=== PATIENT | male | born 1950 | race American Indian/Alaskan Native ===

== ENCOUNTER 2021-08-19 15:29 | Emergency (ER) | payer MEDICARE ==
[2021-08-19 16:05] VITALS: BP 171/74
[2021-08-19] MEDS ORDERED: AMOXICILLIN/K CLAV 875/125MG TAB PO ONE (20:43)
[2021-08-19] MEDS ORDERED: traMADol 50 MG TAB PO ONE (20:43)
[2021-08-19] MEDS ORDERED: ONDANSETRON 4 MG ODT TAB PO ONE (20:43)
[2021-08-19] MEDS ORDERED: RABIES IMMUNE GLOBULIN P/F 300 UNIT/ML INJ 5 ML IM ONE (20:43)
[2021-08-19] MEDS ORDERED: TETANUS,DIPH,PERTUSS(ACELL) VACCINE 0.5 ML SYRINGE IM ONE (20:43)
[2021-08-19] MEDS ORDERED: RABIES VACCINE, HUMAN DIPLOID/PF 2.5 UNIT/ML VIAL IM ONE (20:45)
--- NOTE | 2021-08-19 22:39 | Emergency Department Report ---
ED Animal Bite HPI - General Chief Complaint: Animal Bite Stated Complaint: DOG BITE Source: patient Mode of arrival: Ambulatory Limitations: No Limitations - History of Present Illness Initial Comments: Patient is a 71-year-old -English male with a history of hypertension, CVA and [id number] diabetes who presents to the ED with complaint of acute onset right hand pain and swelling with multiple puncture wounds with bleeding and purulent discharge after being bitten by a strange dog that he met at the park 3 days ago. Patient states that he was walking at the park when he met the dog that was also at the park, and when he tried to tease the dog the dog jumped on him and bit him on the right hand. Patient states that he is unsure of the dog's vaccination status. Patient also states that he is not up-to-date with his tetanus vaccination. Patient denies numbness and tingling or weakness of right hand, dizziness, fever, chills, nausea and vomiting, numbness and tingling or weakness of right hand or loss of consciousness. MD Complaint: animal bite (right hand stray dog bite), animal-related injury (dog bite of right hand ) -: days(s) (3) Location: other (right hand) Right: Hand (multiple puncture wounds from dog bite) Animal: dog Description: unknown animal, immunizations unknown Mechanism: bite, contact with mucous membr Pain Description: sharp, constant, other (swelling) Severity scale (0 -10): 8 Context: provoked Associated Symptoms: erythema, discharge from wound, bleeding. denies: fever, rash, loss of consciousness, cough, headache, diaphoresis, shortness of breath Treatments Prior to Arrival: irrigation - Related Data Patient Tetanus UTD: No Home Medications Medication Instructions Recorded Confirmed Last Taken Aspirin [Aspirin BABY CHEW TAB] 81 mg PO DAILY 02/09/20 02/09/20 Unknown Losartan [Cozaar] 100 mg PO QDAY 02/09/20 02/09/20 Unknown amLODIPine 10 mg PO DAILY 02/09/20 02/09/20 Unknown Previous Rx's Medication Instructions Recorded Last Taken Type Ascorbic Acid [Vitamin C] 1,000 mg PO BID #60 tablet 02/10/20 Unknown Rx AtorvaSTATin [Lipitor] 40 mg PO QHS #30 tablet 02/10/20 Unknown Rx Famotidine [Pepcid] 20 mg PO BID #60 tablet 02/10/20 Unknown Rx Zinc Sulfate [Zinc] 220 mg PO DAILY #30 tablet 02/10/20 Unknown Rx carvediloL [Coreg] 6.25 mg PO BID #60 tablet 02/10/20 Unknown Rx predniSONE [Deltasone] 20 mg PO QDAY #5 tab 02/10/20 Unknown Rx Amoxicillin/K Clav Tab [Augmentin 1 tab PO Q12HR #20 tab 08/19/21 Unknown Rx 875 mg] Ibuprofen [Motrin] 800 mg PO Q8HR PRN #30 tablet 08/19/21 Unknown Rx traMADoL [Ultram] 50 mg PO Q6HR PRN #12 tablet 08/19/21 Unknown Rx Allergies Allergy/AdvReac Type Severity Reaction Status Date / Time No Known Allergies Allergy Unverified 02/06/20 09:16 ED Review of Systems ROS: Stated complaint: DOG BITE Other details as noted in HPI Constitutional: denies: chills, fever Eyes: denies: eye pain, eye discharge, vision change ENT: denies: ear pain, throat pain Respiratory: denies: cough, shortness of breath, wheezing Cardiovascular: denies: chest pain, palpitations Endocrine: no symptoms reported Gastrointestinal: denies: abdominal pain, nausea, diarrhea Genitourinary: denies: urgency, dysuria Musculoskeletal: joint swelling, arthralgia (Right hand pain and swelling due to a puncture wound and swelling from a recent dog bite). denies: back pain Skin: other (Bleeding, swollen, mild erythematous right hand puncture wound from recent dog bite). denies: rash, lesions Neurological: denies: headache, weakness, paresthesias Psychiatric: denies: anxiety, depression Hematological/Lymphatic: denies: easy bleeding, easy bruising ED Past Medical Hx - Past Medical History Previous Medical History?: Yes Hx Hypertension: Yes Hx CVA: Yes Hx Diabetes: Yes Hx Seizures: No Hx Dementia: No Hx HIV: No - Surgical History Past Surgical History?: Yes Additional Surgical History: Left inquinal hernia - Social History Smoking Status: Never Smoker - Medications Home Medications: Home Medications Medication Instructions Recorded Confirmed Last Taken Type Aspirin [Aspirin BABY CHEW TAB] 81 mg PO DAILY 02/09/20 02/09/20 Unknown History Losartan [Cozaar] 100 mg PO QDAY 02/09/20 02/09/20 Unknown History amLODIPine 10 mg PO DAILY 02/09/20 02/09/20 Unknown History Ascorbic Acid [Vitamin C] 1,000 mg PO BID #60 tablet 02/10/20 Unknown Rx AtorvaSTATin [Lipitor] 40 mg PO QHS #30 tablet 02/10/20 Unknown Rx Famotidine [Pepcid] 20 mg PO BID #60 tablet 02/10/20 Unknown Rx Zinc Sulfate [Zinc] 220 mg PO DAILY #30 tablet 02/10/20 Unknown Rx carvediloL [Coreg] 6.25 mg PO BID #60 tablet 02/10/20 Unknown Rx predniSONE [Deltasone] 20 mg PO QDAY #5 tab 02/10/20 Unknown Rx Amoxicillin/K Clav Tab [Augmentin 1 tab PO Q12HR #20 tab 08/19/21 Unknown Rx 875 mg] Ibuprofen [Motrin] 800 mg PO Q8HR PRN #30 tablet 08/19/21 Unknown Rx traMADoL [Ultram] 50 mg PO Q6HR PRN #12 tablet 08/19/21 Unknown Rx ED Physical Exam - General Limitations: No Limitations General appearance: alert, in no apparent distress - Head Head exam: Present: atraumatic, normocephalic, normal inspection - Eye Eye exam: Present: normal appearance, PERRL, EOMI Pupils: Present: normal accommodation - ENT ENT exam: Present: normal exam, normal orophraynx, mucous membranes moist, TM's normal bilaterally, normal external ear exam - Neck Neck exam: Present: normal inspection, full ROM. Absent: tenderness - Respiratory Respiratory exam: Present: normal lung sounds bilaterally. Absent: respiratory distress, wheezes, rales, stridor, chest wall tenderness, accessory muscle use - Cardiovascular Cardiovascular Exam: Present: normal rhythm, tachycardia, normal heart sounds. Absent: systolic murmur, diastolic murmur, rubs, gallop - GI/Abdominal GI/Abdominal exam: Present: soft, normal bowel sounds. Absent: tenderness, guarding, rebound, rigid, hyperactive bowel sounds, hypoactive bowel sounds, organomegaly - Extremities Exam Extremities exam: Present: normal inspection, full ROM, tenderness (Palpable right hand tenderness and swelling due to multiple puncture wounds from recent dog bite), normal capillary refill, joint swelling. Absent: pedal edema, calf tenderness - Back Exam Back exam: Present: normal inspection, full ROM. Absent: tenderness, CVA tenderness (L), muscle spasm, paraspinal tenderness, vertebral tenderness - Neurological Exam Neurological exam: Present: alert, oriented X3, CN II-XII intact, normal gait, reflexes normal - Psychiatric Psychiatric exam: Present: normal affect, normal mood - Skin Skin exam: Present: warm, dry, intact, normal color, other (Multiple puncture wounds on the right hand with bleeding and purulent discharge and localized tenderness from a recent dog bite). Absent: rash ED Course Vital Signs 08/19/21 16:02 Temperature 98.8 F Pulse Rate 100 H Respiratory 20 Rate Blood Pressure 171/74 [Right] O2 Sat by Pulse 95 Oximetry - Reevaluation(s) Reevaluation #1: 08/19/21 22:40 Patient was treated for pain in the ED, patient also received booster tetanus vaccinations. Patient also received initial rabies vaccinations in the ED. The wound was cleaned extensively and dressed appropriately. Patient was discharged home on pain medications and oral antibiotics and advised to follow- up with his primary care physician in 7 to 10 days for reevaluation. Patient was otherwise advised return to the ED immediately if symptoms get worse. Patient was also advised to follow-up with on days 3, day 7 and day 14 for subsequent follow-up rabies vaccination series. Critical care attestation.: If time is entered above; I have spent that time in minutes in the direct care of this critically ill patient, excluding procedure time. ED Disposition Clinical Impression: Puncture wound of right hand with complication Qualifiers: Encounter type: initial encounter Qualified Code(s): S61.431A - Puncture wound without foreign body of right hand, initial encounter Dog bite of right hand with infection Qualifiers: Encounter type: initial encounter Qualified Code(s): S61.451A - Open bite of right hand, initial encounter; L08.9 - Local infection of the skin and subcutaneous tissue, unspecified; W54.0XXA - Bitten by dog, initial encounter Disposition: 01 HOME / SELF CARE / HOMELESS Is pt being admited?: No Does the pt Need Aspirin: No Condition: Stable Instructions: Animal Bite, Adult, [id number], Puncture Wound, [id number], Wound Infection, [id number] Additional Instructions: Take medication with food, drink plenty of fluids, follow-up with your primary care physician in 7 to 10 days for reevaluation. Return to the ED immediately if your symptoms get worse. Otherwise follow-up with either [facility], [facility] or [facility] for subsequent rabies vaccination series follow-up on day 3, (August,), Days 7 (August 25, 2021) and Day 14 (August 29, 2021). Prescriptions: Amoxicillin/K Clav Tab [Augmentin 875 mg] 1 tab PO Q12HR #20 tab Ibuprofen [Motrin] 800 mg PO Q8HR PRN #30 tablet PRN Reason: Pain , Severe (7-10) traMADoL [Ultram] 50 mg PO Q6HR PRN #12 tablet PRN Reason: Pain Referrals: [facility] [Provider Group] - 7-10 days Time of Disposition: 23:02 Print Language: [place]
== END 2021-08-19 23:29 | disposition home or self-care (01) ==
LOC: ED 15:29
DX: S61.431A Puncture wound without foreign body of right hand, initial encounter (principal); S61.451A Open bite of right hand, initial encounter; I10 Essential (primary) hypertension; Z86.73 Personal history of transient ischemic attack (TIA), and cerebral infarction without residual deficits; E11.9 Type 2 diabetes mellitus without complications; Z98.890 Other specified postprocedural states; W54.0XXA Bitten by dog, initial encounter; Y93.89 Activity, other specified; Y92.89 Other specified places as the place of occurrence of the external cause; Y99.8 Other external cause status
CPT/HCPCS: 90375; 90471; 90675; 90715; 99282; J3490; Q0162